=== PATIENT | female | born 1945 | race Caucasian/White ===

== ENCOUNTER → 2016-11-29 | Outpatient (CLI) | payer OTHER, MEDICARE ==
--- NOTE | 2016-11-29 11:00 | US ---
Right Upper Quadrant Abdominal Sonogram History: Follow-up hepatic hemangioma Comparison: May 17, 2016 Findings: An echogenic mass in the anterior subcapsular right lobe of the liver measures 2.4 x 2 x 2c m and is not significantly changed in size considering differences in technique (previously 2.5 x 2.3 x 2 cm). A small cyst in the subcapsular anterior left lobe of the liver is also not significantly c hanged in size currently measuring 9 x 8 x 8 mm. No new hepatic lesions have developed. There is no i ntra or extrahepatic biliary dilatation. The liver remains normal in size at 13 cm. The anterior live r capsule remain smooth. There are no gallstones, gallbladder wall thickening or pericholecystic fluid. The right kidney, omer creas, and common duct are normal. There is no ascites. The visualized aorta and IVC are normal. Impression: Normal study.
== END ==
LOC: FIMAGING 08:54
PROVIDERS: ATTEND Internal Medicine
DX: Z87.898 Personal history of other specified conditions (principal); Z09 Encounter for follow-up examination after completed treatment for conditions other than malignant neoplasm

== ENCOUNTER → 2017-01-23 | Outpatient (CLI) | payer OTHER, MEDICARE | LOC: FIMAGING 13:16 | PROVIDERS: ATTEND Internal Medicine | DX: M81.0 Age-related osteoporosis without current pathological fracture (principal) ==

== ENCOUNTER → 2019-02-11 | Outpatient (CLI) | payer OTHER, MEDICARE | LOC: FIMAGING 10:23 | PROVIDERS: ATTEND Physician Assistant | DX: Z13.820 Encounter for screening for osteoporosis (principal); M81.0 Age-related osteoporosis without current pathological fracture; M85.89 Other specified disorders of bone density and structure, multiple sites; R07.81 Pleurodynia; E07.9 Disorder of thyroid, unspecified; Z87.311 Personal history of (healed) other pathological fracture; Z84.89 Family history of other specified conditions ==